=== PATIENT | female | born 1985 | race Caucasian/White ===

== ENCOUNTER 2024-03-30 10:38 | Emergency (ER) | payer OTHER ==
[2024-03-30 10:53] VITALS: RESP 18; BMI 23.3
[2024-03-30 12:15] LABS: INR 1.05 (0.83-1.09); PROTHROMBIN TIME (PATIENT) 11.9 SEC (9.7-13.0)
[2024-03-30 12:17] LABS: ACTIVATED PTT 29.7 SECONDS (25.2-36.5)
[2024-03-30 12:22] LABS: HEMATOCRIT 41.8 % (32.4-45.2); HEMOGLOBIN 13.7 G/dL (10.7-15.3); MCH 30.4 pg (25.7-33.7); MCHC 32.7 g/dl (32.0-36.0); MEAN CELL VOLUME 93.2 fl (80-96); MEAN PLT VOLUME 10.1 fl (7.5-11.1); PLATELET COUNT 236.7 10^3/uL (134-434); RBC 4.49 10^6/uL (3.60-5.2); RDW 13.6 % (11.6-15.6)
[2024-03-30 12:33] LABS: HCG,QUALITATIVE URINE Negative
[2024-03-30 12:42] LABS: ALBUMIN 4.1 g/dl (3.4-5.0); ALK PHOS 35 U/L (45-117); ANION GAP 5 mmol/L (4-13); BILIRUBIN,TOTAL 0.5 mg/dl (0.2-1); CALCIUM 9.7 mg/dl (8.5-10.1); CHLORIDE 102 mmol/L (98-107); CO2 29 mmol/L (21-32); CREATININE 0.9 mg/dl (0.6-1.3); GLUCOSE,RANDOM 87 mg/dl (74-106); POTASSIUM 4.3 mmol/L (3.5-5.1); SGOT/AST 17 U/L (15-37); SGPT/ALT 13 U/L (7-52); SODIUM 136 mmol/L (136-145); TOT PROT 6.8 g/dl (6.4-8.2)
[2024-03-30 12:52] LABS: EPITHELIAL CELLS 0-5 /hpf
[2024-03-30 13:14] LABS: PLATELET ESTIMATE ADEQUATE
[2024-03-30 15:13] VITALS: BP 114/70; PULSE 79; TEMP 97.8
== END 2024-03-30 15:05 | disposition home or self-care (01) ==
LOC: FER 10:38
DX: R00.2 Palpitations (principal); R55 Syncope and collapse; R07.2 Precordial pain; R05.9 Cough, unspecified; R42 Dizziness and giddiness; R09.81 Nasal congestion; R53.83 Other fatigue; Z20.822 Contact with and (suspected) exposure to COVID-19
CPT/HCPCS: 0241U-QW; 36415; 80053; 81003; 81015; 84439; 84443; 84484; 84703; 85027; 85610; 85730; 87086; 93005; 99284-25